=== PATIENT | female | born 1995 | race Caucasian/White ===

== ENCOUNTER 2023-09-07 03:15 | Inpatient (IN) ==
[2023-09-07] MEDS ORDERED: OXYTOCIN 30 UNITS/500 ML BAG IV PRN ×4 (03:59→17:35)
[2023-09-07] MEDS ORDERED: LIDOCAINE 1% LOCAL 20 ML VIAL INFIL PRN (03:59)
--- NOTE | 2023-09-07 04:16 | History & Physical Report ---
Date of Service September 07, 2023 Assessment & Plan (1) Supervision of normal intrauterine in multigravida: Plan: Admit to L&D. EFM/toco. Labs. IV. Patient wants to avoid pitocin if at all possible. We agreed upon ambulation until 6h post-rupture. If no regular ctx at that point, she is agreeable to pitocin. She would like to avoid epidural. GBS positive - PCN allergic (anaphylaxis - throat swelling), the GBS is resistant to clindamycin. Will give vancomycin. Admission and Anticipated Discharge Date Admission Date: September 07, 2023 History of Present Illness Chief Complaint: rupture of membranes Primary Care Provider: Michael Messer MD 28yo @ 39 03/08, presented to L&D after large gush of clear fluid that occurred at 0130 today. No vaginal bleeding. Feeling ctx Q 4 minutes. + movement. and Delivery Plans Obesity (BMI between 35-39 @ beginning of ) *Growth US @ 32 wks *Weekly NSTs @ 36wks Fibromyalgia GBS Positive *Treat in LD Allergies Allergy/AdvReac Type Severity Reaction Status Date / Time Iodinated Contrast Media Allergy Joint Pain Verified 09/07/23 03:34 Penicillins Allergy edema Verified 09/07/23 03:34 sulfamethoxazole Allergy hives Verified 09/07/23 03:34 [From Bactrim] trimethoprim [From Bactrim] Allergy hives Verified 09/07/23 03:34 Home Medications Medication Instructions Recorded Confirmed Type cholecalciferol (vitamin D3) 5,000 units PO DAILY 07/04/23 09/07/23 History cyclobenzaprine 5 mg tablet 5 mg PO DAILY PRN Pain, Mild 07/04/23 09/07/23 History omeprazole 20 mg capsule,delayed 20 mg PO DAILY PRN Acid Reflux 07/04/23 09/07/23 History release vit 168-iron 27 mg-folic 1 cap PO DAILY 07/04/23 09/07/23 History acid 800 mcg-omega3 235 mg capsule (One-A-Day -1) breast pump #1 ea 08/28/23 09/05/23 Rx Patient History Medical History (Updated 09/07/23 @ 03:32 by Prabha Vargas RN) Arthritis hands, feet, hips Pelvic deformity, acquired Surgical History S/P wisdom tooth extraction Family History (Updated 07/04/23 @ 09:03 by Marycarmen Medina) Mother Hypertension Daughter Asthma Social History (Updated 07/04/23 @ 13:39 by Marycarmen Medina) Smoking Status: Former smoker Do You Dip or Chew Tobacco: No; Hx Alcohol Use: No Hx Substance Use: No Preferred Language: Kazakh Communication Ability: Effective Wool Brusher Required: No Beliefs That Will Affect Care: None marital status: Single marital status details: rebecca (32) [phone] Current Living Situation: Significant Other Current Living Situation Comment: Apartment with FOB and kids current occupational status: employed current occupation: Home health, hospice Other Information That Helps Us Care for You: No Feels Safe at Home: Yes Safety Concerns: Feels Safe At This Time Assistive Devices: Glasses Review of Systems All systems reviewed & are unremarkable except as noted in HPI & below Physical Exam Physical Exam: FHT Cat 1 [place] Q 4 SVE 2/50/-2, grossly ruptured +nitrizine Constitutional: WD/WN, vitals as above Respiratory: normal respiratory effort, lungs clear to auscultation no respiratory distress Cardiovascular: Rate/Rhythm: regular rate and regular rhythm Gastrointestinal (Abdomen): Inspection/Auscultation: abdomen normal to inspection Percussion/Palpation: abdomen soft; abdomen nontender Gravid. No s/s chorio or abruption. Skin: no rashes, warm and dry Psychiatric: A+Ox3, euthymic affect Results & Data Vital Signs (Past 12 Hours) Vital Signs Temp Pulse Resp BP O2 Del Method 09/07/23 03:37 37.0 C 18 Room Air 09/07/23 03:28 110 H 141/86 H Coding Level of Care Code None Diagnoses Supervision of normal intrauterine in multigravida Z34.80
[2023-09-07] MEDS ORDERED: VANCOMYCIN HCL 2,000 MG in SODIUM CHLORIDE 0.9% 250 ML IV STA (04:20)
[2023-09-07] MEDS ORDERED: VANCOMYCIN HCL 2,000 MG in SODIUM CHLORIDE 0.9% 500 ML IV STA (04:28)
[2023-09-07 04:31] LABS: Hemoglobin 12.2 g/dl (12.0-16.0); Mean Corpuscular Hemoglobin 30.6 pg (25.0-34.0); Mean Corpuscular Hgb Conc 33.9 g/dL (32.0-36.0); Mean Corpuscular Volume 90.2 fL (80.0-100.0); Mean Platelet Volume 11.3 fL (9.4-12.4); Platelet Count 189 K/uL (130-400); RDW Coefficient of Variation 13.2 % (11.5-14.5); Red Blood Count 3.99 M/uL (4.20-5.40); White Blood Count 11.61 K/ul (4.8-10.8)
[2023-09-07] MEDS ORDERED: diphenhydrAMINE 50 MG/ML VIAL IV STA (07:32)
[2023-09-07] MEDS ORDERED: FAMOTIDINE 20 MG in SYRINGE 3 ML IV STA (07:32)
--- NOTE | 2023-09-07 07:36 | Labor Progress Brief Note ---
Date of Service September 07, 2023 Subjective Called to patient room - red flush of neck, face. No difficulty breathing or throat swelling. Suspect moderate vancomycin hypersensitivity reaction. Discussed with patient - not an allergy, but a hypersensitivity reaction. Will treat with 50mg IV diphenhydramine, 20mg IV famotidine, restart the antibiotic drip at 1/2 rate. She is agreeable. FHT Cat 1 [place] Q 4-5 SVE /-2 Discussed with patient that the labor has not really progressed yet - recommend pitocin. She feels that her contractions have really picked up and is not ready to start pitocin at this time - wants to eat breakfast. We agreed to allow her to eat small breakfast and place on monitor and consider pitocin at that point. Assessment & Plan Admission and Anticipated Discharge Date Admission Date: September 07, 2023 Results & Data Vital Signs (Past 12 Hours) Vital Signs Temp Pulse Resp BP O2 Del Method 09/07/23 03:37 37.0 C 18 Room Air 09/07/23 07:28 101 H 09/07/23 07:28 138/83 09/07/23 05:48 18 09/07/23 05:48 36.9 C 18 09/07/23 05:48 125 H 09/07/23 05:48 144/82 H 09/07/23 03:28 110 H 141/86 H Coding Level of Care Code None Diagnoses
[2023-09-07] MEDS: LACTATED RINGER'S 1,000 ML IV PRN ×3 (09:17→12:46)
[2023-09-07] MEDS ORDERED: fentaNYL citrate PF 100 MCG/2 ML VIAL ONE (10:17)
[2023-09-07] MEDS ORDERED: SODIUM CHLORIDE 0.9% PF INJ 10 ML VIAL ONE (10:17)
[2023-09-07] MEDS ORDERED: LIDOCAINE 2%/EPINEPHRINE 1:200,000 20 ML PF ONE (10:17)
[2023-09-07] MEDS ORDERED: fentaNYL 2MCG/ML ROPIVACAINE 1.25MG/ML 100 ML BAG EPI ONE (10:17)
[2023-09-07] MEDS ORDERED: BUPIVACAINE 0.25% PF 30 ML VIAL ONE (10:17)
[2023-09-07] MEDS ORDERED: ePHEDrine sulfate 50 MG/ML AMP ONE (10:17)
--- NOTE | 2023-09-07 10:33 | Labor Progress Brief Note ---
Date of Service September 07, 2023 Subjective Requested epidural but not in place yet. Breathing through contractions. No longer feeling the hot/itchy vanco reaction. Assessment & Plan (1) PROM (premature rupture of membranes): Plan: Patient declined pitocin and is uncomfortable so hopefully laboring productively; will reassess after epidural. (2) GBS (group B streptococcus) infection: Plan: Vanco given per cultures, but had reaction. Treated and then completed dose at 1/2 rate per usual medical recommendations for this situation and no longer having reaction. Admission and Anticipated Discharge Date Admission Date: September 07, 2023 Physical Exam Genitourinary: FHT Cat 1 [place] Q2-5 irreg Cvx deferred until after epidural Results & Data Vital Signs (Past 12 Hours) Vital Signs Temp Pulse Resp BP Pulse Ox O2 Del Method 09/07/23 07:15 98.2 F 16 09/07/23 07:15 16 09/07/23 03:37 98.6 F 18 Room Air 09/07/23 10:28 96 09/07/23 10:28 101 H 09/07/23 10:29 100 H 09/07/23 10:29 121/72 09/07/23 10:23 98 09/07/23 10:23 105 H 09/07/23 10:18 100 09/07/23 10:18 110 H 09/07/23 10:13 100 09/07/23 10:13 114 H 09/07/23 10:01 107 H 09/07/23 10:01 135/81 09/07/23 09:30 98.2 F 09/07/23 07:28 101 H 09/07/23 07:28 138/83 09/07/23 05:48 18 09/07/23 05:48 98.4 F 18 09/07/23 05:48 125 H 09/07/23 05:48 144/82 H 09/07/23 03:28 110 H 141/86 H Coding Level of Care Code None Diagnoses PROM (premature rupture of membranes) O42.90 GBS (group B streptococcus) infection A49.1
--- NOTE | 2023-09-07 11:09 | Anesthesiology Consultation ---
Date of Service September 07, 2023 Assessment & Plan Chart Review Chart Review: Acceptable Risk for Labor Epidural Consults Requested none ASA ASA2 Proposed Anesthesia Anesthesia Type: Labor Epidural Risk / Benefits Reviewed With: PT / POA / Parent / Guardian, Accepts Plan and Informed Consent Obtained History Height/Weight Height: 5 ft 5 in Weight: 117.934 kg Allergies Allergy/AdvReac Type Severity Reaction Status Date / Time Iodinated Contrast Media Allergy Joint Pain Verified 09/07/23 03:34 Penicillins Allergy Anaphylaxis Verified 09/07/23 04:20 sulfamethoxazole Allergy hives Verified 09/07/23 03:34 [From Bactrim] trimethoprim [From Bactrim] Allergy hives Verified 09/07/23 03:34 vancomycin AdvReac Intermediate Redness of Verified 09/07/23 10:33 Skin Medications Home Medications Medication Instructions Recorded Confirmed Last Taken cholecalciferol (vitamin D3) 5,000 units PO DAILY 07/04/23 09/07/23 09/06/23 cyclobenzaprine 5 mg tablet 5 mg PO DAILY PRN Pain, Mild 07/04/23 09/07/23 Unknown omeprazole 20 mg capsule,delayed 20 mg PO DAILY PRN Acid Reflux 07/04/23 09/07/23 Unknown release vit 168-iron 27 mg-folic 1 cap PO DAILY 07/04/23 09/07/23 09/06/23 acid 800 mcg-omega3 235 mg capsule (One-A-Day -1) breast pump #1 ea 08/28/23 09/05/23 Unknown Active Medications Generic Name Dose Route Start Last Admin Trade Name Freq PRN Reason Stop Dose Admin Lactated Ringer's 1,000 mls @ 125 mls/hr 09/07/23 03:59 09/07/23 10:38 Lr IV 09/09/23 03:58 999 mls/hr .Q8H PRN Infusion L&D Protocol Protocol Past Medical History Medical History Arthritis hands, feet, hips 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 fluid diet during Pelvic deformity, acquired Exercise / Class Metabolic Activity II 4-5 Yardwork/Stairs/Walk up hill Past Family History Family History Mother Hypertension Daughter Asthma Past Surgical History Surgical History S/P wisdom tooth extraction Past Anesthesia History No Hx of Anesthesia Complications and No Family Hx of Anesthesia Complications History of PONV No Hx of PONV and No Hx of Motion Sickness Social History Smoking Status: Former smoker Do You Dip or Chew Tobacco: No Hx Alcohol Use: No Hx Substance Use: No Physical Exam Vital Signs Last Vital Signs Temp 98.2 F 09/07/23 09:30 Pulse 104 H 09/07/23 11:03 Resp 16 09/07/23 07:15 BP 147/96 H 09/07/23 10:59 Pulse Ox 100 09/07/23 11:03 O2 Del Method Room Air 09/07/23 03:37 ENMT Mouth: no dentition abnormality Thyromental Distance: > or= 3.5 Finger Breadths Mallampati Class: II Neck normal visual inspection Respiratory normal respiratory effort Auscultation: lungs clear to auscultation bilaterally Cardiovascular Rate/Rhythm: regular rate and regular rhythm Testing Laboratory Results 09/07/23 04:10 Blood Type A Positive 09/07/23 04:10 Antibody Screen NEGATIVE 09/07/23 04:10
[2023-09-07] MEDS ORDERED: fentaNYL 2MCG/ML ROPIVACAINE 1.25MG/ML 100 ML BAG EPI PRN (11:28)
[2023-09-07] MEDS ORDERED: ONDANSETRON INJ 2 MG/ML 2 ML VIAL IV PRN (11:28)
[2023-09-07] MEDS ORDERED: ePHEDrine sulfate 50 MG/ML AMP IV PRN (11:28)
[2023-09-07] MEDS ORDERED: LIDOCAINE 2% MPF LOCAL 5 ML VIAL EPI PRN (11:28)
[2023-09-07] MEDS ORDERED: NALOXONE HCL 0.4 MG/1 ML VIAL/CARP IV PRN (11:28)
[2023-09-07] MEDS ORDERED: NALOXONE HCL 1 MG in SODIUM CHLORIDE 0.9% 1,000 ML IV PRN (11:28)
[2023-09-07] MEDS ORDERED: SODIUM CHLORIDE 0.9% PF INJ 10 ML VIAL EPI PRN (11:28)
[2023-09-07] MEDS ORDERED: diphenhydrAMINE 50 MG/ML VIAL IV PRN (11:28)
[2023-09-07] MEDS ORDERED: BUPIVACAINE 0.25% PF 30 ML VIAL EPI STA (11:28)
[2023-09-07] MEDS ORDERED: fentaNYL citrate PF 100 MCG/2 ML VIAL EPI PRN (11:28)
[2023-09-07] MEDS ORDERED: fentaNYL citrate PF 100 MCG/2 ML VIAL EPI STA (11:28)
[2023-09-07] MEDS ORDERED: LIDOCAINE 2%/EPINEPHRINE 1:200,000 20 ML PF EPI STA (11:28)
[2023-09-07] MEDS ORDERED: NALBUPHINE HCL INJ 10 MG/ML AMP IV PRN (11:28)
[2023-09-07] MEDS ORDERED: SODIUM CHLORIDE 0.9% PF INJ 10 ML VIAL EPI STA (11:28)
[2023-09-07] MEDS ORDERED: BUPIVACAINE 0.25% PF 30 ML VIAL EPI PRN (11:28)
[2023-09-07] MEDS ORDERED: ROPIVACAINE 0.5% PF 5 MG/ML 20 ML VIAL EPI PRN (11:28)
--- NOTE | 2023-09-07 13:21 | Labor Progress Brief Note ---
Date of Service September 07, 2023 Subjective Comfortable with epidural. Agreeable to pitocin at this point. Assessment & Plan (1) PROM (premature rupture of membranes): Plan: Start pitocin augmentation. Admission and Anticipated Discharge Date Admission Date: September 07, 2023 Physical Exam Genitourinary: 4-5/90/-2 FHT Cat 1 [place] Q4m Results & Data Vital Signs (Past 12 Hours) Vital Signs Temp Pulse Resp BP Pulse Ox O2 Del Method 09/07/23 12:48 98.6 F 20 09/07/23 07:15 98.2 F 16 09/07/23 07:15 16 09/07/23 03:37 98.6 F 18 Room Air 09/07/23 13:18 100 09/07/23 13:18 111 H 09/07/23 13:13 99 09/07/23 13:13 102 H 09/07/23 13:08 98 09/07/23 13:08 105 H 09/07/23 13:07 114 H 09/07/23 13:07 105/55 L 09/07/23 13:00 16 09/07/23 13:00 16 09/07/23 13:03 100 09/07/23 13:03 113 H 09/07/23 12:58 100 09/07/23 12:58 125 H 09/07/23 12:53 100 09/07/23 12:53 115 H 09/07/23 12:52 120 H 09/07/23 12:52 121/71 09/07/23 12:48 100 09/07/23 12:48 107 H 09/07/23 12:43 97 09/07/23 12:43 114 H 09/07/23 12:26 20 09/07/23 12:26 20 09/07/23 12:38 96 09/07/23 12:38 99 H 09/07/23 12:36 106 H 09/07/23 12:36 112/63 09/07/23 12:33 100 09/07/23 12:33 110 H 09/07/23 12:31 112 H 09/07/23 12:31 110/67 09/07/23 12:28 97 09/07/23 12:28 91 H 09/07/23 12:26 100 H 09/07/23 12:26 116/66 09/07/23 12:23 100 09/07/23 12:23 97 H 09/07/23 12:20 107 H 09/07/23 12:20 108/65 09/07/23 12:18 98 09/07/23 12:18 97 H 09/07/23 12:18 114/67 09/07/23 12:16 110 H 09/07/23 12:16 110/62 09/07/23 12:13 100 09/07/23 12:13 98 H 09/07/23 12:14 109 H 09/07/23 12:14 113/69 09/07/23 12:12 120 H 09/07/23 12:12 111/64 09/07/23 12:10 117 H 09/07/23 12:10 118/68 09/07/23 12:08 97 09/07/23 12:08 98 H 09/07/23 12:08 113/59 L 09/07/23 12:06 113 H 09/07/23 12:06 108/59 L 09/07/23 12:05 113 H 09/07/23 12:05 108/63 09/07/23 12:03 99 09/07/23 12:03 109 H 09/07/23 12:03 113 H 09/07/23 12:03 88/53 L 09/07/23 12:00 112 H 09/07/23 12:00 105/58 L 09/07/23 12:00 16 09/07/23 12:00 16 09/07/23 11:58 100 09/07/23 11:58 118 H 09/07/23 11:58 101/58 L 09/07/23 11:50 16 09/07/23 11:50 16 09/07/23 11:56 16 09/07/23 11:56 16 09/07/23 11:56 112 H 09/07/23 11:56 104/62 09/07/23 11:54 111 H 09/07/23 11:54 111/67 09/07/23 11:53 100 09/07/23 11:53 113 H 09/07/23 11:52 103 H 09/07/23 11:52 118/70 09/07/23 11:50 93 H 09/07/23 11:50 115/67 09/07/23 11:48 100 09/07/23 11:48 83 09/07/23 11:48 111/64 09/07/23 11:46 80 09/07/23 11:46 74/35 L 09/07/23 11:44 80 09/07/23 11:44 82/46 L 09/07/23 11:43 100 09/07/23 11:43 98 H 09/07/23 11:39 16 09/07/23 11:39 16 09/07/23 11:42 16 09/07/23 11:42 16 09/07/23 11:42 94 H 09/07/23 11:42 96/55 L 09/07/23 11:40 102 H 09/07/23 11:40 88/51 L 09/07/23 11:38 100 09/07/23 11:38 116 H 09/07/23 11:38 90/45 L 09/07/23 11:36 123 H 09/07/23 11:36 121/58 L 09/07/23 11:34 122 H 09/07/23 11:34 128/67 09/07/23 11:35 16 09/07/23 11:35 16 09/07/23 11:33 100 09/07/23 11:33 119 H 09/07/23 11:32 100 H 09/07/23 11:32 132/73 09/07/23 11:32 18 09/07/23 11:32 18 09/07/23 11:30 18 09/07/23 11:30 98.4 F 18 09/07/23 11:30 120 H 09/07/23 11:30 128/76 09/07/23 11:28 100 09/07/23 11:28 108 H 09/07/23 11:28 130/70 09/07/23 11:26 108 H 09/07/23 11:26 120/67 09/07/23 11:25 90 09/07/23 11:25 113 H 09/07/23 11:24 107 H 09/07/23 11:24 129/61 09/07/23 11:23 99 09/07/23 11:23 100 H 09/07/23 11:22 112 H 09/07/23 11:22 139/77 09/07/23 11:20 111 H 09/07/23 11:20 139/76 09/07/23 11:18 100 09/07/23 11:18 113 H 09/07/23 11:13 100 09/07/23 11:13 114 H 09/07/23 11:08 100 09/07/23 11:08 116 H 09/07/23 11:03 100 09/07/23 11:03 104 H 09/07/23 10:58 96 09/07/23 10:59 91 09/07/23 10:58 103 H 09/07/23 10:59 101 H 09/07/23 10:59 147/96 H 09/07/23 10:53 99 09/07/23 10:53 100 H 09/07/23 10:48 96 09/07/23 10:48 106 H 09/07/23 10:45 100 H 09/07/23 10:45 139/91 09/07/23 10:43 98 09/07/23 10:43 106 H 09/07/23 10:38 99 09/07/23 10:38 105 H 09/07/23 10:36 92 09/07/23 10:36 102 H 09/07/23 10:33 100 09/07/23 10:33 106 H 09/07/23 10:28 96 09/07/23 10:28 101 H 09/07/23 10:29 100 H 09/07/23 10:29 121/72 09/07/23 10:23 98 09/07/23 10:23 105 H 09/07/23 10:18 100 09/07/23 10:18 110 H 09/07/23 10:13 100 09/07/23 10:13 114 H 09/07/23 10:01 107 H 09/07/23 10:01 135/81 09/07/23 09:30 98.2 F 09/07/23 07:28 101 H 09/07/23 07:28 138/83 09/07/23 05:48 18 09/07/23 05:48 98.4 F 18 09/07/23 05:48 125 H 09/07/23 05:48 144/82 H 09/07/23 03:28 110 H 141/86 H Coding Level of Care Code None Diagnoses PROM (premature rupture of membranes) O42.90
[2023-09-07] MEDS ORDERED: VANCOMYCIN HCL 1,000 MG in SODIUM CHLORIDE 0.9% 250 ML IV PRN (15:20)
--- NOTE | 2023-09-07 17:31 | Delivery Summary ---
Vaginal Delivery Summary Date of Service September 07, 2023 Vaginal Delivery Summary DIAGNOSES: 1. Chen intrauterine at 39w4d gestation. 2. PROM, IOL. 3. Group B Streptococcus Pos treated with Vanco x1 dose, c/b moderate vanco hypersensitivity reaction. PROCEDURE: Spontaneous vaginal delivery and repair of periurethral laceration. SURGEON: Monique Ochoa MD. SALES DONOR RECRUITMENT REPRESENTATIVE: None. ESTIMATED BLOOD LOSS: 350 mL. COMPLICATIONS: None. PLACENTA: Spontaneous and intact with a 3-vessel cord. DISPOSITION: Stable to labor and delivery. DESCRIPTION: The patient pushed well and brought the head to in DOA position. The infant's head was allowed to deliver with contraction force and no further active pushing, with the perineum protected during this time. There was no nuchal cord. The right shoulder was anterior. The shoulders and body delivered without any difficulty, and the infant was placed on the maternal abdomen. It was vigorous and moving all extremities, and making respiratory efforts. The cord was doubly clamped by the MD and then cut by the FOB after the interval requested by the mother, which precluded collection of meaningful cord blood sample. The placenta delivered spontaneously and was noted to be intact and with a 3VC. The cervix, vagina and perineum were examined and were found to have a laceration between the urethra and clitoris, along a line of prior scar tissue based on the description the patient gave of her prior laceration. This was not hemostatic and was therefore repaired with 3-0 vicryl in a running locked manner with a catheter in the urethra during repair to ensure patency, and the catheter was easily removed after repair was completed.. The fundus was firm and lochia minimal immediately after delivery. Patient did object to the administration of pitocin, and despite counseling of the reasons we recommend it, asked that it be turned off at that time which it was. [facility] Vaginal Delivery Charge Vaginal Delivery Codes: 61940 global code for the antepartum, delivery, and post-
[2023-09-07] MEDS ORDERED: BENZOCAINE 20% SPRY 85 APPLN/85 GM CAN EXT PRN (17:35)
[2023-09-07] MEDS ORDERED: bisacodyL 10 MG SUPP PR PRN (17:35)
[2023-09-07] MEDS ORDERED: DIPHTHERIA/TETANUS/PERTUSSIS Vaccine (Tdap, Age 7+yrs) 0.5mL SYR/VL IM ONE (17:35)
[2023-09-07] MEDS ORDERED: HYDROCORTISONE ACETATE 25 MG SUPP PR PRN (17:35)
[2023-09-07] MEDS ORDERED: ACETAMINOPHEN 325 MG TAB PO PRN (17:35)
[2023-09-07] MEDS: IBUPROFEN 600 MG TAB PO PRN ×2 (19:07→23:13)
[2023-09-07] MEDS: oxyCODONE/ACETAMINOPHEN 5mg/325mg TAB PO PRN ×2 (19:07→23:13)
[2023-09-07] MEDS: DOCUSATE SODIUM 100 MG CAP PO SCH (21:36)
[2023-09-08] MEDS: oxyCODONE/ACETAMINOPHEN 5mg/325mg TAB PO PRN ×3 (06:02→19:41)
[2023-09-08] MEDS: IBUPROFEN 600 MG TAB PO PRN ×3 (06:02→16:11)
[2023-09-08 06:27] LABS: Hemoglobin 10.1 g/dl (12.0-16.0); Mean Corpuscular Hemoglobin 30.2 pg (25.0-34.0); Mean Corpuscular Hgb Conc 32.6 g/dL (32.0-36.0); Mean Corpuscular Volume 92.8 fL (80.0-100.0); Mean Platelet Volume 11.6 fL (9.4-12.4); Platelet Count 172 K/uL (130-400); RDW Coefficient of Variation 13.2 % (11.5-14.5); RDW Standard Deviation 44.9 fL (36.4-46.3); Red Blood Count 3.34 M/uL (4.20-5.40); White Blood Count 12.37 K/ul (4.8-10.8)
--- NOTE | 2023-09-08 08:12 | Anesthesia Procedure Note ---
Date of Service September 08, 2023 Anesthesia Post Epidural Note Vital Signs Vital Signs: Temp Pulse Resp BP Pulse Ox O2 Del Method 97.7 F 83 18 114/78 97 Room Air 09/08/23 02:53 09/08/23 02:53 09/08/23 02:53 09/08/23 02:53 09/08/23 02:53 09/08/23 02:53 Pain Intensity Abdomen: Pain Intensity: 2 Notes Mental Status: alert / awake / arousable and participated in evaluation Nausea / Vomiting: adequately controlled Pain: adequately controlled Airway Patency, RR, SpO2: stable & adequate BP & HR: stable & adequate Hydration State: stable & adequate Neuraxial Anesthesia: was administered and sensory block is resolving Anesthetic Complications: no major complications apparent and Pt Satisfied with anesthetic care Epidural: Removed without complications and With tip intact
[2023-09-08] MEDS: PRENATAL VITAMIN 1 TAB PO SCH (08:43)
[2023-09-08] MEDS: DOCUSATE SODIUM 100 MG CAP PO SCH ×2 (08:43→19:40)
--- NOTE | 2023-09-08 08:49 | Obstetrical Progress Note ---
Date of Service September 08, 2023 Assessment & Plan (1) PROM (premature rupture of membranes): Desires stay another night, plan d/c tomorrow, recovering well and ppx Hgb good. Subjective Ambulation: ambulating normally Voiding: no voiding problems Passing Gas:: Yes Diet Tolerance:: regular diet Lochia:: Small Feeding Type:: breast feeding Physical Exam Constitutional WD/WN, vitals as above Eyes PERRL, conjunctivae normal, anicteric sclerae Neck normal visual inspection Respiratory normal respiratory effort and able to speak in complete sentences; no respiratory distress and no labored breathing Cardiovascular Rate/Rhythm: regular rate and regular rhythm Extremities: no edema Chest (Breasts) Chest: normal inspection of chest Gastrointestinal (Abdomen) Inspection/Auscultation: abdomen normal to inspection Soft, postgravid Psychiatric A+Ox3, euthymic affect Genitourinary OB Exam Abdomen: + fundal height Fundus: + firm and + relation to umbilicus (fundus just below umbilicus); not tender Results & Data Vital Signs (Past 12 Hours) Vital Signs Temp Pulse Resp BP Pulse Ox O2 Del Method 09/08/23 02:53 97.7 F 83 18 114/78 97 Room Air 09/07/23 23:04 98.1 F 89 18 127/68 97 Room Air
[2023-09-08] MEDS ORDERED: bisacodyL 5 MG TABEC PO SCH (20:00)
[2023-09-09] MEDS: IBUPROFEN 600 MG TAB PO PRN ×3 (00:10→13:24)
[2023-09-09] MEDS: oxyCODONE/ACETAMINOPHEN 5mg/325mg TAB PO PRN ×2 (05:24→11:28)
--- NOTE | 2023-09-09 05:33 | Obstetrical Progress Note ---
Date of Service September 09, 2023 Assessment & Plan (1) Encounter for care and examination after delivery: Plan 28 yo post- day 2 s/p Vital signs reviewed and WNL Blood type A+, Rubella neg and GBS + Pt doing well clinically Encourage ambulation Monitor and control pain with Motrin prn Regular diet, Monitor Lochia Encourage breast feeding Discharge home today, pt counselled on discharge instructions Admission and Anticipated Discharge Date Admission Date: September 07, 2023 Supervising Physician Co-Signing Physician Notes Resident Physician Supervision Note: I interviewed and examined the patient. Discussed with Dr. Amaro and agree with findings and plan as documented in the note. Any exceptions or clarifications are listed here: [ ] Documented By: Monique Ochoa MD, FACOG Subjective 28 yo post- day 2 s/p Ambulation: ambulating normally Voiding: no voiding problems Passing Gas:: Yes Diet Tolerance:: regular diet Lochia:: Small Feeding Type:: Breast Feeding Current Pain Level: minimal Resting comfortably this AM in NAD. Denies GARCIA, CP, SOB, N/V/D, LE pain/swelling. Review of Systems Review of Systems: All systems reviewed & are unremarkable except as noted in HPI & below Physical Exam Physical Exam: General: patient resting comfortably, NAD, non-toxic in appearance, AA&O x 4, answers questions appropriately. Skin: warm, dry, intact HEENT: NC/AT, anicteric sclera, conjunctiva without injection, moist mucus membranes. Heart: +S1/S2, regular, no m/r/g Lungs: equal air entry bilaterally, no rales/rhonchi/wheezes Abd: +BS, soft, NT/ND, uterine fundus firm at umbilicus Ext: warm, no clubbing/cyanosis or edema, Shamika's neg. Neuro: nonfocal, patient AA&O x 4, speech intact, no facial droop, moving all extremities on command. Results & Data Vital Signs (Past 12 Hours) Vital Signs Temp Pulse Resp BP Pulse Ox O2 Del Method 09/08/23 22:59 36.6 C 87 18 112/74 99 Room Air 09/08/23 20:38 36.4 C L 88 18 114/80 97 Room Air Resident Activity Tracking Resident Involvement: Resident Care Provided Care Provided: OB Delivery
[2023-09-09 07:14] LABS: Hematocrit (blood only) 29.7 % (37.0-47.0); Hemoglobin 9.9 g/dl (12.0-16.0)
[2023-09-09] MEDS: DOCUSATE SODIUM 100 MG CAP PO SCH (07:35)
[2023-09-09] MEDS: PRENATAL VITAMIN 1 TAB PO SCH (07:35)
[2023-09-09] MEDS ORDERED: MEASLES, MUMPS & RUBELLA VIRUS VACCINE (MMR) VIAL SQ ONE (07:41)
== END 2023-09-09 13:51 | disposition home or self-care (01) | DRG 807 ==
LOC: OPB 03:15 → 4S1 03:18 → 4E2 19:55